=== PATIENT | female | born 1990 | race Two or more races ===

== ENCOUNTER 2018-04-08 18:35 | Emergency (ER) | payer OTHER ==
[2018-04-08 18:47] VITALS: BP 117/74
[2018-04-08] MEDS ORDERED: SODIUM CHLORIDE 0.9% 1,000 ML IV ONE (18:57)
[2018-04-08] MEDS ORDERED: diphenhydrAMINE INJ 50 MG/ML VIAL IVP STA (18:58)
[2018-04-08] MEDS ORDERED: PROCHLORPERAZINE 10 MG/2 ML VIAL IVP STA (18:58)
[2018-04-08] MEDS ORDERED: KETOROLAC 60 MG/2 ML VIAL IVP STA (18:58)
--- NOTE | 2018-04-08 19:01 | ED Physician Documentation ---
History of Present Illness - Stated complaint Stated Complaint: HEADACHES - Chief complaint Chief Complaint: Neuro - History obtained from History obtained from: Patient - History of Present Illness Timing: Today, How many hours ago (14) Pain level max: 9 Pain level now: 9 Improved by: nothing Worsened by: light, sound - Additonal information Additional information: Patient is a 27-year-old female who presents to the emergency department with a gradual onset headache today. Started approximately 4 AM and is worsened throughout the day. Has had nausea and vomiting. Tried smoking marijuana but this did not help. She has not had any fevers. Has had some nasal congestion. No coughing. Denies any possibility of . Does have a long history of migraine headaches. Review of Systems Ten Systems: 10 systems reviewed and negative Constitutional: denies: Fever, Chills Nose: denies: Rhinorrhea / runny nose, Congestion Throat: denies: Sore throat GI: denies: Vomiting, Diarrhea : denies: Now EGA Skin: denies: Rash Musculoskeletal: denies: Neck pain, Back pain Neurologic: denies: Focal weakness, Numbness, Head injury, LOC PD PAST MEDICAL HISTORY - Past Medical History Past Medical History: Yes Neuro: Migraines - Past Surgical History Past Surgical History: No - Present Medications Home Medications: Ambulatory Orders Medication Instructions Recorded Confirmed Ondansetron Odt [Zofran] 4 mg TL Q6H PRN #10 tablet 04/08/18 Sumatriptan [Imitrex] 20 mg NS ONCE PRN #7 spray 04/08/18 - Allergies Allergies/Adverse Reactions: Allergies Allergy/AdvReac Type Severity Reaction Status Date / Time No Known Drug Allergies Allergy Verified 04/08/18 19:01 - Living Situation Living Situation: reports: With family Living Arrangement: reports: At home - Social History Does the pt have substance abuse?: Yes Substance Use and Type: Marijuana - Family History Family history: reports: Non contributory PD ED PE NORMAL - Vitals Vital signs reviewed: Yes - General General: Alert and oriented X 3, No acute distress, Other (lying in a darkened room) - HEENT HEENT: PERRL, Moist mucous membranes, Pharynx benign - Neck Neck: Supple, no meningeal sign, No bony TTP - Cardiac Cardiac: RRR, Strong equal pulses - Respiratory Respiratory: No respiratory distress, Clear bilaterally - Abdomen Abdomen: Soft, Non tender, Non distended - Back Back: No spinal TTP - Derm Derm: Warm and dry, No rash - Extremities Extremities: No calf tenderness / cord - Neuro Neuro: Alert and oriented X 3 - Psych Psych: Normal mood, Normal affect Results - Vitals Vitals: Vital Signs - 24 hr 04/08/18 04/08/18 18:44 19:55 Temperature 36.9 C Heart Rate 103 H 102 H Respiratory 16 14 Rate Blood Pressure 117/74 O2 Saturation 100 99 Oxygen O2 Source Room air - Labs Labs: Laboratory Tests 04/08/18 04/08/18 19:07 19:07 WBC 7.5 RBC 4.48 Hgb 13.8 Hct 39.3 MCV 87.7 MCH 30.7 MCHC 35.0 RDW 12.7 Plt Count 178 MPV 8.7 Neut # (Auto) 6.8 H Lymph # (Auto) 0.2 L Brewster # (Auto) 0.4 Eos # (Auto) 0.1 Baso # (Auto) 0.0 Absolute Nucleated RBC 0.03 Nucleated RBC % 0.4 Sodium 135 Potassium 4.0 Chloride 105 Carbon Dioxide 21 Anion Gap 9.0 BUN 13 Creatinine 0.6 Estimated GFR (MDRD) 119 Glucose 80 Calcium 9.1 Serum HCG, Qual NEGATIVE PD MEDICAL DECISION MAKING - ED course Complexity details: re-evaluated patient, considered differential, d/w patient, d/w family ED course: Patient is a 27-year-old female with her usual migraine headache. Resolved with Toradol, Compazine and Benadryl. Also given IV fluids. Tolerating p.o. without difficulty. We will have her follow-up with her PCP for further care. Will prescribe Imitrex intranasal at home for her to see if this helps her headaches. Has 3-4 headaches per month. Patient counseled regarding signs and symptoms for which I believe and urgent re-evaluation would be necessary. Patient with good understanding of and agreement to plan and is comfortable going home at this time This document was made in part using voice recognition software. While efforts are made to proofread this document, sound alike and grammatical errors may occur. Departure - Departure Disposition: 01 Home, Self Care Clinical Impression: Migraine Qualifiers: Migraine type: unspecified Status migrainosus presence: without status migrainosus Intractability: not intractable Qualified Code(s): G43.909 - Migraine, unspecified, not intractable, without status migrainosus Condition: Good Instructions: ED Headache Migraine Follow-Up: Inna Canada PA-C [Primary Care Provider] - Within 1 week Prescriptions: Ondansetron Odt [Zofran] 4 mg TL Q6H PRN #10 tablet PRN Reason: Nausea / Vomiting Sumatriptan [Imitrex] 20 mg NS ONCE PRN #7 spray PRN Reason: headache Comments: Return if you worsen. Use the imitrex as needed for headaches. you are not to drive tonight. Go home and rest. Discharge Date/Time: 04/08/18 20:24
[2018-04-08 19:26] LABS: BASOPHILS % (AUTO) 0.4 %; EOSINOPHILS # (AUTO) 0.1 10^3/uL (0.0-0.7); EOSINOPHILS % (AUTO) 1.3 %; HGB - HEMOGLOBIN 13.8 g/dL (12.0-16.0); LYMPHOCYTES # (AUTO) 0.2 10^3/uL (1.5-3.5); MEAN CORPUSCULAR HEMOGLOBIN 30.7 pg (27.0-31.0); MEAN CORPUSCULAR VOLUME 87.7 fL (81.0-99.0); MEAN PLATELET VOLUME 8.7 fL (7.9-10.8); MONOCYTES # (AUTO) 0.4 10^3/uL (0.0-1.0); MONOCYTES % (AUTO) 4.7 %; NEUTROPHILS # (AUTO) 6.8 10^3/uL (1.5-6.6); NEUTROPHILS % (AUTO) 90.6 %; PLT - PLATELET COUNT 178 10^3/uL (130-450); RED BLOOD COUNT 4.48 10^6/uL (4.20-5.40); RED CELL DISTRIBUTION WIDTH 12.7 % (12.0-15.0); WHITE BLOOD COUNT 7.5 x10^3/uL (4.8-10.8)
[2018-04-08 19:33] LABS: BUN - BLOOD UREA NITROGEN 13 mg/dL (6-20); CALCIUM 9.1 mg/dL (8.5-10.3); CARBON DIOXIDE - CO2 21 mmol/L (21-32); CHLORIDE 105 mmol/L (101-111); CREATININE 0.6 mg/dL (0.4-1.0); GFR - MDRD 119 (>89); GLUCOSE 80 mg/dL (70-100); SODIUM 135 mmol/L (135-145)
[2018-04-08 19:56] LABS: HCG,QUALITATIVE BLOOD NEGATIVE
== END 2018-04-08 20:24 | disposition home or self-care (01) ==
LOC: ED 18:35
DX: G43.909 Migraine, unspecified, not intractable, without status migrainosus (principal)
CPT/HCPCS: 36415; 80048; 84703; 85025; 96361; 96374; 99283; J1200

== ENCOUNTER 2019-02-24 07:13 | Outpatient (CLI) | payer OTHER ==
[2019-02-24 10:22] LABS: BASOPHILS % (AUTO) 1.1 %; EOSINOPHILS # (AUTO) 0.1 10^3/uL (0.0-0.7); EOSINOPHILS % (AUTO) 2.7 %; HGB - HEMOGLOBIN 13.5 g/dL (12.0-16.0); LYMPHOCYTES # (AUTO) 1.2 10^3/uL (1.5-3.5); LYMPHOCYTES % (AUTO) 32.8 %; MEAN CORPUSCULAR HEMOGLOBIN 29.5 pg (27.0-31.0); MEAN CORPUSCULAR HGB CONC 32.9 g/dL (32.0-36.0); MEAN CORPUSCULAR VOLUME 89.5 fL (81.0-99.0); MONOCYTES # (AUTO) 0.3 10^3/uL (0.0-1.0); MONOCYTES % (AUTO) 7.4 %; NEUTROPHILS # (AUTO) 2.1 10^3/uL (1.5-6.6); PLT - PLATELET COUNT 185 10^3/uL (130-450); RED BLOOD COUNT 4.58 10^6/uL (4.20-5.40); RED CELL DISTRIBUTION WIDTH 11.8 % (12.0-15.0); WHITE BLOOD COUNT 3.7 x10^3/uL (4.8-10.8)
[2019-02-24 10:59] LABS: ALBUMIN 4.4 g/dL (3.2-5.5); ALBUMIN/GLOBULIN RATIO 1.4 (1.0-2.2); ALKALINE PHOSPHATASE 37 IU/L (42-121); ALT ALANINE AMINOTRANSFERASE 19 IU/L (10-60); AST ASPARTATE AMINOTRANSFERASE 20 IU/L (10-42); BILIRUBIN,TOTAL 1.4 mg/dL (0.2-1.0); BUN - BLOOD UREA NITROGEN 13 mg/dL (6-20); CALCIUM 9.4 mg/dL (8.5-10.3); CARBON DIOXIDE - CO2 25 mmol/L (21-32); CHLORIDE 106 mmol/L (101-111); CHOL/HDL RATIO 2.3 (<4.4); CHOLESTEROL 219 mg/dL; CREATININE 0.6 mg/dL (0.4-1.0); GFR - MDRD 118 (>89); GLUCOSE 85 mg/dL (70-100); HDL CHOLESTEROL 94 mg/dL; SODIUM 140 mmol/L (135-145); TOTAL PROTEIN 7.5 g/dL (6.7-8.2)
[2019-02-24 11:06] LABS: CRP HIGH SENSITIVITY < 0.5 mg/L
[2019-02-24 11:10] LABS: THYROID STIMULATING HORMONE 1.54 uIU/mL (0.34-5.60)
[2019-02-24 11:12] LABS: FREE T4 (FREE THYROXINE) 0.86 ng/dL (0.58-1.64)
[2019-02-24 11:28] LABS: HB2 TOTAL 14.1 g/dL; HEMOGLOBIN A1C 0.44 g/dL
[2019-02-26 14:27] LABS: HSV 1 IGG TYPE SPECIFIC AB <0.90 index; HSV 2 IGG TYPE SPECIFIC AB <0.90 index
== END 2019-02-24 07:14 | disposition home or self-care (01) ==
LOC: LAB.S 07:13
PROVIDERS: ATTEND Naturopath
DX: Z00.01 Encounter for general adult medical examination with abnormal findings (principal); Z13.0 Encounter for screening for diseases of the blood and blood-forming organs and certain disorders involving the immune mechanism; Z13.1 Encounter for screening for diabetes mellitus; Z13.220 Encounter for screening for lipoid disorders; Z13.29 Encounter for screening for other suspected endocrine disorder; Z13.6 Encounter for screening for cardiovascular disorders
CPT/HCPCS: 36415; 80053; 80061; 81599; 83036; 83721; 84439; 84443; 84481; 85025; 86141; 86695; 86696; 87491; 87591; 87661